=== PATIENT | male | born 1940 | race Caucasian/White ===

== ENCOUNTER 2018-05-06 16:36 | Emergency (ER) | payer OTHER ==
[~2018-05-06] VITALS: Ht 177.8 cm; Wt 95.3 kg
[2018-05-06 16:37] VITALS: BP 155/92
--- NOTE | 2018-05-06 16:37 | NUR ---
PT BIBA ALS TO BED 2
--- NOTE | 2018-05-06 16:40 | NUR ---
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 DENIES CP, DIZZINESS. SON AT BEDSIDE AT THIS TIME. PT SKIN IS PINK/WARM/DRY; AAOX4 WITH EVEN AND STEADY GAIT; LUNGS CLEAR BL; HR EVEN AND REGULAR; PT DENIES ANY FEVER, CP, SOB, OR COUGH AT THIS TIME; PATIENT STATES PAIN OF 0/10 AT THIS TIME; VSS; PATIENT POSITIONED FOR COMFORT; HOB ELEVATED; BEDRAILS UP X1; BED DOWN. ER MD MADE AWARE OF PT STATUS. MED HX: HTN, DM RX:UNKNOWN
--- NOTE | 2018-05-06 16:41 | NUR ---
[facility] in [facility] - 05/06/18 at 1851 by [facility] PT CAN IN WITH IV ON RT HAND BY [facility]
--- NOTE | 2018-05-06 16:41 | NUR ---
PT CAME IN WITH IV ON RT HAND BY [facility]
[2018-05-06] MEDS ORDERED: NACL 0.9% 1,000 ML IV SCH (16:47)
[2018-05-06] MEDS ORDERED: PROMETHAZINE 25 MG/ML VIAL IM ONE (16:50)
[2018-05-06] MEDS ORDERED: ONDANSETRON 4 MG/2 ML VIAL IVP ONE (16:50)
--- NOTE | 2018-05-06 16:51 | NUR ---
Patient being evaluated by physician at bedside.
--- NOTE | 2018-05-06 17:00 | NUR ---
PT IS NOT ABLE TO GIVE URINE AT THIS TIME
--- NOTE | 2018-05-06 17:05 | NUR ---
LAB AT BEDSIDE
--- NOTE | 2018-05-06 17:07 | NUR ---
PT TAKEN TO CT
[2018-05-06] MEDS ORDERED: FAMOTIDINE 20 MG TAB PO ONE (17:10)
[2018-05-06] MEDS ORDERED: MECLIZINE 25 MG TAB PO ONE (17:10)
--- NOTE | 2018-05-06 17:10 | NUR ---
[facility] in [facility] - 05/06/18 at 1720 by EMILY PT BACK FROM CT
--- NOTE | 2018-05-06 17:15 | NUR ---
PT BACK FROM CT
[2018-05-06 17:26] LABS: BASOPHILS % (AUTO) 0.6 % (0.0-2.0); EOSINOPHILS # (AUTO) 0.1 K/uL (0-0.4); EOSINOPHILS % (AUTO) 1.7 % (0.0-4.0); HEMATOCRIT 44.5 % (36-52); HEMOGLOBIN 14.9 g/dL (12.0-18.0); LYMPHOCYTES # (AUTO) 1.8 K/uL (2.0-11.5); LYMPHOCYTES % (AUTO) 27.8 % (20.5-51.1); MEAN CORPUSCULAR HEMOGLOBIN 30 pg (27-31); MEAN CORPUSCULAR HGB CONC 33 g/dL (33-37); MEAN CORPUSCULAR VOLUME 90.1 fL (80-94); MONOCYTES # (AUTO) 0.4 K/uL (0.8-1.0); MONOCYTES % (AUTO) 5.3 % (1.7-9.3); NEUTROPHILS # (AUTO) 4.3 K/uL (1.8-7.7); NEUTROPHILS % (AUTO) 64.6 % (42.2-75.2); PLATELET COUNT (AUTO) 150 K/uL (140-450); RED BLOOD CELL COUNT(AUTO) 4.94 MIL/uL (4.20-6.10); RED CELL DISTRIBUTION WIDTH 13.9 % (11.6-13.7); WHITE BLOOD COUNT (AUTO) 6.7 K/uL (4.8-10.8)
[2018-05-06 17:32] LABS: APPEARANCE,URINE CLEAR (CLEAR); BILIRUBIN,URINE 1+ (NEGATIVE); BLOOD, URINE 3+ (NEGATIVE); COLOR,URINE YELLOW (YELLOW); LEUKOCYTE ESTERASE ,URINE TRACE (NEGATIVE); NITRITE, URINE NEGATIVE (NEGATIVE); UGLUCOSE NEGATIVE (NEGATIVE)
[2018-05-06 17:47] LABS: ANION GAP 12.7 (8-16); CARBON DIOXIDE 27.6 mmol/L (21-32); CHLORIDE 106 mmol/L (98-107); CREATININE 1.1 mg/dL (0.7-1.3); GLUCOSE 164 mg/dL (74-106); POTASSIUM 4.3 mmol/L (3.5-5.1); SODIUM SERUM 142 mmol/L (136-145); UREA NITROGEN, BLOOD 17 mg/dL (7-18)
[2018-05-06 17:50] LABS: PROTHROMBIN TIME 10.3 secs (10.8-13.4)
[2018-05-06 17:58] LABS: ALBUMIN 4.1 g/dL (3.4-5.0); AMYLASE 55 U/L (25-115); ASPARTATE AMINOTRANSFERASE 21 U/L (15-37); LIPASE 213 U/L (73-393); TOTAL BILIRUBIN 0.3 mg/dL (0.0-1.0)
[2018-05-06 18:09] LABS: SALICYLATE < 2.8 mg/dL (2.8-20.0)
[2018-05-06 18:13] LABS: ACETAMINOPHEN < 0.5 ug/ml (10-30)
[2018-05-06 18:41] LABS: RBC,URINE 11-20 (MOD) /HPF (0-5)
[2018-05-06 18:42] LABS: CALCIUM OXALATE CRYSTALS,UR 30-50 /HPF (None Seen); WBC,URINE 0-5 (RARE) /HPF (0-5)
--- NOTE | 2018-05-06 19:14 | NUR ---
REPORT FROM DINAE NAJERA
--- NOTE | 2018-05-06 20:54 | NUR ---
CALLED LAB FOR URINE PICK-UP
--- NOTE | 2018-05-06 21:18 | NUR ---
Patient to be transferred to [facility]. Is being transferred due to CONTINUED LEVEL OF CARE. Receiving facility has accepting physician and available space. ER physician has signed transfer form. Patient or responsible democrat has agreed to transfer and signed form. Patient belongings inventoried and will be sent with patient. Copy of nursing notes, lab reports, EKG, Physicians Orders and X-rays to be sent with patient. Report called to DIANE ESCAMILLA at receiving [phone]. [facility] ambulance service has been called for transfer. ETA is 60-90 MINUTES.
[2018-05-06 22:14] VITALS: BP 145/76
== END 2018-05-06 22:14 | disposition short-term general hospital (02) ==
LOC: MED 17:13
DX: R55 Syncope and collapse (principal); R11.2 Nausea with vomiting, unspecified; R42 Dizziness and giddiness; R53.1 Weakness; E11.9 Type 2 diabetes mellitus without complications; I10 Essential (primary) hypertension
CPT/HCPCS: 36415; 70450; 71045; 80053; 81001; 82150; 82550; 83690; 84484; 85025; 85610; 85730; 96361; 96374; 96375; 99285; G0480; G0482; J2405; J2550; J8597; Q0092